=== PATIENT | female | born 1935 | race Caucasian/White ===

== ENCOUNTER → 2017-04-23 | Outpatient (CLI) | payer OTHER ==
[~2017-04-23] VITALS: Ht 162.6 cm; Wt 71.7 kg
[~2017-04-23] MED LIST: ACETAMINOPHEN325 M1 PO; ACTONEL150 MG PO; AGGRENOX 25 MG1 EACH PO; ASPIRIN EC81 M1 PO; ASPIRIN81 M2 PO; CALCIUM 600 +1 EAC9 PO; CALCIUM 600 MG1 EAC3 PO; CENTRUM COMPLE1 EACH PO; CENTRUM SILVER1 EAC4 PO; CERTAGEN TABLE1 EACH PO; CO Q10100 MG PO; COUMADIN 5 MG TA5 M1 PO; COZAAR100 MG PO; CRESTOR20 MG PO; ENOXAPARIN80 MG/0.8 SUBQ; EXELON1 EAC1 TOP; FISH OIL 1,001000 M1 PO; FISH OIL SOFTG1 EACH PO; FLONASE 0.05%50 MCG NASAL; FLORANEX TABLE1 EACH PO; FOLIC ACID0.8 MG PO; K-DUR10 MEQ PO; LANOXIN 0.120.125 M1 PO; LASIX 10 MG/10 MG/M1 PO; LASIX 20 MG TAB20 MG PO; LASIX 40 MG TAB40 M2 PO; LEVAQUIN 750 M750 MG PO; LIDODERM1 EACH TOP; LOSARTAN POTAS100 MG PO; MACROBID 100 M100 M1 PO; NAMENDA 10 MG T10 MG PO; NORCO 5-325 TA1 EACH PO; OMEPRAZOLE20 M2 PO; OXYCODONE HCL 55 MG PO; PACERONE 200 M200 M1 PO; PROBIOTIC1 EACH PO; PROTONIX40 M1 PO; RYTHMOL225 MG PO; SINEMET 10-1001 EAC1 PO; SMOOTHLAX17 GM PO; SORINE 80 MG TA80 M1 PO; SPIRIVA INH; SYMBICORT160 MCG/4. INH; SYNTHROID75 MCG PO; TOPROL XL25 MG PO; TOVIAZ4 M1 PO; VENTOLIN HFA 1818 GM INH; VITAMIN B-1100 M1 PO; VITRON-C TABLE1 EAC1 PO; XARELTO15 MG PO; XARELTO20 MG PO
--- NOTE | ~2017-04-23 | HPC ---
[facility] [place] [address] PAIN MANAGEMENT CONSULTATION Name: ARIANNA TOMLINSON Room #: REG [facility]#: [id number] Admission: 04/23/17 Attend Phys: Sahra Horowitz MD Discharge: Date of : 33 Report #: [id number] THIS REPORT FOR: //name// CC: Sahra Sharpe MD DATE OF SERVICE: 04/23/2017 CHIEF COMPLAINT: Compression fracture at L3 with severe pain on the left. HISTORY OF PRESENT ILLNESS: The patient is an 82-year-old female who has been referred to the pain clinic for evaluation of pain and discomfort. She states that she has been having pain since March. She suffered a compression fracture in the L3 area. She is having pain, which radiates into the left groin radiates down into her left leg. She noticed some right leg discomfort as well. She notes that standing and getting in and out of bed is problematic. Pain is better when she uses a heating pad or sometimes ice packs. She describes it as steady, constant and aching. She rates it as 04/11 at this juncture. She denies any urinary incontinence, bowel or bladder problems. She finds that the pain was so severe, it brings out her tears. ALLERGIES: ALBUTEROL BLADDER MEDICATION TOVIAZ AND VESICARE, MIRTAZAPINE, FLOMAX, ERYTHROMYCIN. CURRENT MEDICATIONS: Levaquin 750 mg, iron, Spiriva inhaler, Exelon, albuterol one puff q4h p.r.n. Protonix 40 mg, oxycodone 5 mg IR, Namenda 10 mg, Lidoderm patch q.12h., hydrocodone 5/325, Flomax, Sinemet 10/100, metoprolol 25 mg, Lasix 40 mg, aspirin 81 mg, multivitamins, folic acid 0.8 mg, Actonel 150 mg monthly, Crestor 20 mg and Synthroid 75 mcg. PAST MEDICAL HISTORY: 1. Atrial fibrillation with rapid ventricular response. 2. Lower leg edema, bilateral. 3. History of knee pain. 4. History of positive stools, occult. 5. Lung nodule. 6. Osteopenia. 7. Chronic kidney disease, stage 4. 8. Bradycardia. 9. 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 10. Low back pain. 11. Anemia. 12. Carotid artery disease. 13. Dementia without behavioral disturbance. 14. Congestive heart failure. [address] [address] PAIN MANAGEMENT CONSULTATION Name: ARIANNA TOMLINSON [id number] Admission: 04/23/17 Attend Phys: Sahra Horowitz MD Discharge: Date of : 33 Report #: [id number] 15. Claudication. 16. Hypothyroidism. 17. Hypertension. 18. COPD. 19. CVA/stroke/dementia. 20. Depression. PAST SURGICAL HISTORY: Cholesteatoma, cataract extraction, REAL-BSO, and left hip ORIF. SOCIAL HISTORY: Retired for 20 years. REVIEW OF SYSTEMS: Fatigue, cataract removal, hearing loss, shortness of breath, heart trouble, fatigue, head injury, stroke, memory loss, insomnia. LABORATORY DATA: CT of the lumbar spine dated 03/24/2017 showed acute compression fracture of the L3 vertebral body with approximately 50% height loss. There is mild retropulsion of the fragments resulting in mild spinal canal narrowing at L3. PHYSICAL EXAMINATION: VITAL SIGNS: Blood pressure 132/64, pulse 80, respiratory rate 15, room air saturation 98%. Height 5 feet 4 inches, weight 158 pounds, BMI is 27. EXTREMITIES: The patient has pain and discomfort in the area of the L3 vertebral compression. RECOMMENDATIONS: We discussed treatment options with the patient. At this juncture, I think it would be prudent to try a transforaminal epidural steroid injection to note its efficacy. The patient does not appear to be a candidate at this juncture for a vertebroplasty or kyphoplasty. We will proceed with the injection. PROCEDURE NOTE: Risks and benefits of the procedure were explained to the patient. Possible complications were discussed. We will proceed. The patient was placed in the prone position. Fluoroscopy was used to identify the L3-L4 interspace. This area was sterilely prepped with Betadine and infiltrated with 0.25% bupivacaine. Total of 80 mg Depo-Medrol was injected into this area. The patient's pain decreased to 3 at the time of discharge. She will follow up in the future as needed. We would like to thank you for letting us participate in her care. We hope she continues to improve. By: [id number] Sahra Horowitz MD /IRMA
[2017-04-23 12:44] VITALS: BP 132/64
== END | disposition home or self-care (01) ==
LOC: PAIN 06:58
DX: M48.56XA Collapsed vertebra, not elsewhere classified, lumbar region, initial encounter for fracture (principal); Z88.8 Allergy status to other drugs, medicaments and biological substances; I48.91 Unspecified atrial fibrillation; D04.9 Carcinoma in situ of skin, unspecified; I13.0 Hypertensive heart and chronic kidney disease with heart failure and stage 1 through stage 4 chronic kidney disease, or unspecified chronic kidney disease; N18.4 Chronic kidney disease, stage 4 (severe); I50.9 Heart failure, unspecified; D64.9 Anemia, unspecified; R00.0 Tachycardia, unspecified; I25.10 Atherosclerotic heart disease of native coronary artery without angina pectoris; F03.90 Unspecified dementia, unspecified severity, without behavioral disturbance, psychotic disturbance, mood disturbance, and anxiety; I73.9 Peripheral vascular disease, unspecified; E03.9 Hypothyroidism, unspecified; J44.9 Chronic obstructive pulmonary disease, unspecified; F32.9 Major depressive disorder, single episode, unspecified; Z98.890 Other specified postprocedural states; Z90.710 Acquired absence of both cervix and uterus; M54.5 Low back pain